=== PATIENT | male | born 1975 ===

== ENCOUNTER 2019-06-10 13:54 | Emergency (ER) | payer OTHER ==
[~2019-06-10] VITALS: Ht 180.3 cm; Wt 97.5 kg
== END 2019-06-10 16:46 | disposition home or self-care (01) ==
LOC: ER 13:54
DX: N50.812 Left testicular pain (principal)

== ENCOUNTER 2019-07-11 15:32 | Emergency (ER) | payer OTHER ==
[~2019-07-11] VITALS: Ht 182.9 cm; Wt 97.5 kg
== END 2019-07-11 18:44 | disposition home or self-care (01) ==
LOC: ER 15:32
DX: R42 Dizziness and giddiness (principal)